=== PATIENT | female | born 1945 | race Caucasian/White ===

== ENCOUNTER 2018-03-23 10:15 | Emergency (ER) | payer BC, OTHER ==
[~2018-03-23] VITALS: Ht 149.9 cm; Wt 72.6 kg
[2018-03-23 10:24] VITALS: BP_SYST 146
[2018-03-23] MEDS ORDERED: IBUPROFEN 600 MG TABLET PO ONE (12:15)
[2018-03-23 12:37] VITALS: BP_SYST 136
== END 2018-03-23 12:37 | disposition home or self-care (01) ==
LOC: SED 10:15
DX: S52.614A Nondisplaced fracture of right ulna styloid process, initial encounter for closed fracture (principal); I10 Essential (primary) hypertension; Z90.49 Acquired absence of other specified parts of digestive tract; Z90.89 Acquired absence of other organs; Z88.5 Allergy status to narcotic agent; W19.XXXA Unspecified fall, initial encounter; Y93.89 Activity, other specified; Y92.89 Other specified places as the place of occurrence of the external cause; Y99.8 Other external cause status
CPT/HCPCS: 70450-TC; 70486-TC; 73560-TC; 99284